=== PATIENT | female | born 1970 | race American Indian/Alaskan Native ===

== ENCOUNTER 2017-08-07 17:40 | Emergency (ER) | payer OTHER ==
[2017-08-07 17:48] VITALS: BP 148/88
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
[2017-08-07] MEDS ORDERED: FLEXERIL PO ONE (19:10)
[2017-08-07] MEDS ORDERED: MOTRIN PO ONE (19:10)
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
== END 2017-08-07 20:52 | disposition home or self-care (01) ==
LOC: ED 17:40
DX: S43.402A Unspecified sprain of left shoulder joint, initial encounter (principal); V89.2XXA Person injured in unspecified motor-vehicle accident, traffic, initial encounter; Y93.89 Activity, other specified; Y92.89 Other specified places as the place of occurrence of the external cause; Y99.8 Other external cause status
CPT/HCPCS: 99283